=== PATIENT | male | born 1940 | race Caucasian/White ===

== ENCOUNTER 2024-08-02 12:54 | Outpatient (AMB) | payer MEDICARE, OTHER, SELFPAY ==
--- NOTE | 2024-08-02 13:16 | A.OFFVIS_ITS ---
Vital Signs 08/02/24 13:17 Height 5 ft 7 in Weight 162 lb BMI 25.4 BP 122/72 Blood Pressure Location Rt brachial Position Sitting Intake Visit Reasons: ENP- Impairment of balance Intake Note: Patient presents for impairment of balance Allergies sertraline Allergy (Mild, Verified 08/02/24 13:19) Vomiting HPI Comments Details: 84y/o male comes for evaluation of balance and gait issues. His family has been noticing issues with balance issues for a few years now but 2 months ago he had an episode of dizziness and blurry vision lasting 2 days . He describes as a sense of movement , so he wnet to ER. He was given meclizine which helped. He was referred to vestibular therapy which helped. But his gait balance did not improve with PT so they suggested a neuro eval. Shandra thomas ahs some foot issues the past 2 weeks with pain in his left plantar surface. He sees a customer care representative regularly. He had 1 fall when he had dizziness but no other falls. No severe back or neck pain . He feels his left leg is weak and slower. No tremors.He has mild memory issues - more at night. He uses a cane often. He uses a diaper for inconctinence. He has mild numbness in the left leg. He had a CT Brain at [facility]. 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 [facility] Medical History (Updated 08/02/24 @ 13:56 by Nicci Augustine MD) Gait abnormality Prostate cancer Plantar fascia syndrome Anxiety Hyperlipidemia HTN (hypertension) Insomnia Prediabetes BPH (benign prostatic hyperplasia) Depression Surgical History Hx of colonoscopy Hx of appendectomy Family History Father Alcoholism Lung tumor Mother Goiter Social History Alcohol intake: never Patient Tobacco Use Status: Former Tobacco user Physical Exam Vital Signs: Last Vital Signs BP 122/72 08/02/24 13:17 BMI result Body Mass Index 25.4 Const General: cooperative, healthy appearing, comfortable and anxious Nutritional Appearance: average body habitus Orientation/consciousness: patient oriented x3 Eyes Pupils: Equal, round and reactive pupils present Neuro Other: left ptosis Right Ue mild cogwheel rigidity Flat feet. Restricted range of motion - neck - FFM decreased tejas Foot taps decreased tejas small steps stooped - walks fast General: patient oriented x3, tone normal, moves all extremities and no focal motor deficits Cranial nerves: Yes Facial sensation intact/muscles of mastication intact, Yes Equal, round and reactive pupils present, Yes Bilaterally intact EOM present, Yes Nystagmus not present, Yes Normal facial strength present, Yes Midline tongue present and Yes Symmetric palate elevation present Cognition (Neuro): normal cognition Gait exam (Neuro): Antalgic gait present Motor exam (neuro): 5/5 motor strength present throughout Deep tendon reflexes (DTR's): Right triceps reflex intensity grade: 2+, Left triceps reflex intensity grade: 2+, Rt Biceps (C5, C6): 2+, Left biceps reflex intensity grade: 2+, Right brachioradialis reflex intensity grade: 2+, Left brachioradialis reflex intensity grade: 2+, Right patellar reflex intensity grade: 2+ and Left patellar reflex intensity grade: 2+ Assessment & Plan Assessment & Plan (1) Gait abnormality: Comment: multifactorial ,musculoskeletal, frontal gait, age related, related to foot issues Code(s): R26.9 - Unspecified abnormalities of gait and mobility Category: Medical Plan Decrease clonazepam 0.5mg 1/2 tab qam and 1 tab qhs He will benefit from a walker. will refer back to PT for evaluation F/u with podiatry - may need arch support Vit B [address] brain report . Will monitor clinically/ Orders: Orders PT Evaluation and Treatment Today R26.9 - Unspecified abnormalities of gait and mobility Vitamin B12 and Folate Today R26.9 - Unspecified abnormalities of gait and mobility Coding Level of Care Code New Pt Level 4 (97055) Complex EM visit Add On G2211 Diagnoses Gait abnormality R26.9
[2024-08-02 13:17] VITALS: BP 122/72; BMI 25.4
== END 2024-08-02 14:00 | disposition home or self-care (01) ==
PROVIDERS: PCP Family Medicine; Visit Provider Psychiatry & Neurology Neurology
DX: R26.9 Unspecified abnormalities of gait and mobility (principal)
CPT/HCPCS: 99204; G2211

== ENCOUNTER → 2024-08-02 12:54 | Outpatient (BNVA) | payer MEDICARE, OTHER, SELFPAY | PROVIDERS: PCP Family Medicine; Visit Provider Psychiatry & Neurology Neurology | DX: R26.9 Unspecified abnormalities of gait and mobility (principal) | CPT/HCPCS: 99202 ==

== ENCOUNTER 2024-08-05 13:50 | Outpatient (REF) | payer MEDICARE, OTHER, SELFPAY ==
[2024-08-05 18:29] LABS: Folate 11.7 ng/mL (> or = 4.0); Vitamin B12 315 pg/mL (200-900)
== END 2024-08-05 13:51 | disposition home or self-care (01) ==
LOC: HO.WFDLDS 13:50
PROVIDERS: Visit Provider Psychiatry & Neurology Neurology
DX: R26.9 Unspecified abnormalities of gait and mobility (principal)
CPT/HCPCS: 36415; 82607; 82746

== ENCOUNTER 2025-02-02 13:48 | Outpatient (AMB) | payer MEDICARE, OTHER, SELFPAY ==
--- NOTE | 2025-02-02 13:50 | MHC.OFFVIS ---
Vital Signs 02/02/25 13:52 Height 5 ft 4 in Weight 154 lb BMI 26.4 BP 134/68 Blood Pressure Location Rt brachial Position Sitting Pulse 60 Pulse Source Pulse Oximeter Pulse Oximetry (%) 98 Oxygen Delivery Method Room Air Intake Visit Reasons: f/u appt Intake Note: Patient following up PT not done. unable to contact patient. labs 08/05/24 Allergies sertraline Allergy (Mild, Verified 02/02/25 13:55) Vomiting HPI Comments Details: 84y/o male comes for follow up of balance and gait issues. He is doing good with walker and PT> History from initial visit-His family has been noticing issues with balance issues for a few years now but 2 months ago he had an episode of dizziness and blurry vision lasting 2 . He describes as a sense of movement , so he wnet to ER. He was given meclizine which helped. He was referred to vestibular therapy which helped. But his gait balance did not improve with PT so they suggested a neuro eval. Shandra cynthiaalexy ahs some foot issues the past 2 weeks with pain in his left plantar surface. He sees a car detailer regularly. He had 1 fall when he had dizziness but no other falls. No severe back or neck pain . He feels his left leg is weak and slower. No tremors.He has mild memory issues - more at night. He uses a cane often. He uses a diaper for inconctinence. He has mild numbness in the left leg. He had a CT Brain at [facility]. 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 [facility] Medical History Gait abnormality Prostate cancer Plantar fascia syndrome Anxiety Hyperlipidemia HTN (hypertension) Insomnia Prediabetes BPH (benign prostatic hyperplasia) Depression Surgical History Hx of colonoscopy Hx of appendectomy Family History Father Alcoholism Lung tumor Mother Goiter Social History Alcohol intake: never Patient Tobacco Use Status: Former Tobacco user Physical Exam Vital Signs: Last Vital Signs Pulse 60 02/02/25 13:52 BP 134/68 02/02/25 13:52 Pulse Ox 98 02/02/25 13:52 Oxygen Delivery Method Room Air 02/02/25 13:52 BMI result Body Mass Index 26.4 Const General: cooperative, healthy appearing and comfortable Nutritional Appearance: average body habitus Orientation/consciousness: patient oriented x3 Eyes Pupils: Equal, round and reactive pupils present Neuro Other: left ptosis Right Ue mild cogwheel rigidity Flat feet. Restricted range of motion - neck - FFM decreased tejas Foot taps decreased tejas small steps stooped - walks fast with walker General: patient oriented x3, tone normal, moves all extremities and no focal motor deficits Cranial nerves: Yes Facial sensation intact/muscles of mastication intact, Yes Equal, round and reactive pupils present, Yes Bilaterally intact EOM present, Yes Nystagmus not present, Yes Normal facial strength present, Yes Midline tongue present and Yes Symmetric palate elevation present Cognition (Neuro): normal cognition Gait exam (Neuro): Antalgic gait present Motor exam (neuro): 5/5 motor strength present throughout Assessment & Plan Assessment & Plan (1) Gait abnormality: Comment: multifactorial ,musculoskeletal, frontal gait, age related, related to foot issues Code(s): R26.9 - Unspecified abnormalities of gait and mobility Category: Medical Plan Continue clonazepam 0.5mg 1/2 tab qam and 1 tab qhs F/u with podiatry - may need arch support Vit B 12 - normal CT brain-normal Will monitor clinically/ Coding Level of Care Code Est Pt Level 4 (98970) Diagnoses Gait abnormality R26.9
[2025-02-02 13:52] VITALS: BP 134/68; PULSE 60; O2SAT 98; BMI 26.4
--- OUTSIDE RECORDS SUMMARY | 2025-02-02 14:21 | XMS_ITS | Clinical Summary ---
Author Organization [facility] Address [address] [place] [address] Care Team Providers Care Varnish Remover Name Role Phone Unavailable Primary Care Provider Unavailabl e Social History Tobacco Use Types Packs/Day Years Used Date Smoking Tobacco: Never Assessed Sex and Gender Information Value Date Recorded Sex Assigned at Male 01/28/2025 9:42 AM EDT Legal Sex Male 9:40 AM EDT Gender Identity Male 01/28/2025 9:42 AM EDT Sexual Orientation Heterosexual (straight) 01/28 9:42 AM EDT Plan of Treatment Upcoming Encounters Date Type Department Care Team (Late st Contact Info) Description 04/08/2025 1:15 PM EDT Office Visit [facility] [address], [facility] [place] [id number] Kyalie Tay PA-C [address] [place] [id number] Health Maintenance Due Date Last Done Comments DTaP/Tdap/Td Vaccines (1 - Tdap) 1961 Pneumococcal Vaccines 50+ (1 of 1 - PCV) 1992 Zoster (Shingles) Vaccine (1 of 2) 1992 RSV Vaccine 60 years and old er and Patients (1 - 1-dose 75+ series) 2017 COVID-19 Vaccine ( - 2023-2 5 season) 2024 Influenza Vaccine 03/04/2025 Hepatitis B Vaccines Aged Out No long er eligible based on patient's age to complete this topic Insurance MEDICARE PART A & B [employer] MEDICARE
--- OUTSIDE RECORDS SUMMARY | 2025-02-02 14:21 | XMS_ITS ---
Author Name [facility] Organization Unknown Care Team Organization Name Specialty Phone Email Start Date End [facility] 01/28/2025
== END 2025-02-02 15:28 | disposition home or self-care (01) ==
LOC: HO.HSMS 13:49
PROVIDERS: PCP Family Medicine; Visit Provider Psychiatry & Neurology Neurology
DX: R26.9 Unspecified abnormalities of gait and mobility (principal)
CPT/HCPCS: 99214

== ENCOUNTER → 2025-02-02 13:48 | Outpatient (BNVA) | payer MEDICARE, OTHER, SELFPAY | PROVIDERS: PCP Family Medicine; Visit Provider Psychiatry & Neurology Neurology | DX: R26.89 Other abnormalities of gait and mobility (principal); Z79.899 Other long term (current) drug therapy | CPT/HCPCS: 99212 ==